=== PATIENT | female | born 1980 | race African-American/Black ===

== ENCOUNTER 2018-01-31 08:51 | Emergency (ER) | payer MEDICAID, OTHER ==
[~2018-01-31] VITALS: Ht 165.1 cm; Wt 118.8 kg
[2018-01-31 08:55] VITALS: BP 156/101
[2018-01-31] MEDS ORDERED: FLUORESCEIN SOD 1 MG TEST STRIP ONE (09:01)
[2018-01-31] MEDS ORDERED: TETRACAINE HCL 0.5% OPTH(EYE) SOLN 4ML RIGHTEYE ONE (09:15)
[2018-01-31] MEDS ORDERED: methylPREDNISolone SOD SUCC 125 MG/2 ML VL ONE (09:19)
[2018-01-31] MEDS ORDERED: methylPREDNISolone SOD SUCC 125 MG/2 ML VL IM ONE (09:30)
[2018-01-31] MEDS ORDERED: hydrOXYzine HCL 25 MG/ML VL IM ONE ×2 (09:35→09:45)
== END 2018-01-31 09:42 | disposition home or self-care (01) ==
LOC: ER 08:53
DX: H10.11 Acute atopic conjunctivitis, right eye (principal)
CPT/HCPCS: 96372; 99284; J2930; J3410